=== PATIENT | female | born 1990 | race Caucasian/White ===

== ENCOUNTER 2020-03-08 12:45 | Emergency (ER) | payer BC, OTHER, SELFPAY ==
[2020-03-08 18:38] LABS: SARS-CoV-2 MS2 Positive; SARS-CoV-2 N Gene Negative; SARS-CoV-2 S Gene Negative; SARS-CoV-2 orf1ab Negative
== END 2020-03-08 13:26 | disposition home or self-care (01) ==
LOC: ERS 12:45
DX: O99.89 Other specified diseases and conditions complicating pregnancy, childbirth and the puerperium (principal); R05 Cough; Z20.828 Contact with and (suspected) exposure to other viral communicable diseases
CPT/HCPCS: 87635; 99283; U0003

== ENCOUNTER 2020-05-30 14:51 | Outpatient (CLI) | payer BC ==
--- NOTE | 2020-05-30 15:16 | ULT ---
EXAM: US Thyroid STANDARD PROVIDED CLINICAL HISTORY: Hypothyroidism. COMPARISON: None FINDINGS: The thyroid gland demonstrates a homogeneous echotexture bilaterally. No thyroid nodule is seen in ei ther lobe of the thyroid gland. Right lobe of thyroid gland measures 4.1 cm x 1.5 cm x 1.1 cm with the left lobe measuring 3.7 cm x 1 .2 cm x 0.9 cm. The thyroid isthmus measures 0.2 cm in AP dimensions. IMPRESSION: Normal appearance of the thyroid gland without visualization of a thyroid nodule.
== END 2020-05-30 14:52 | disposition home or self-care (01) ==
LOC: SCSULT 14:51
PROVIDERS: ATTEND Family Medicine
DX: E03.9 Hypothyroidism, unspecified (principal)
CPT/HCPCS: 76536

== ENCOUNTER 2020-08-03 09:02 | Outpatient (CLI) | payer BC, OTHER ==
[2020-08-03 18:15] LABS: SARS-CoV-2 MS2 Positive; SARS-CoV-2 N Gene Negative; SARS-CoV-2 S Gene Negative; SARS-CoV-2 by NAA Not Detected (NotDetected); SARS-CoV-2 orf1ab Negative
== END 2020-08-03 09:03 | disposition home or self-care (01) ==
LOC: LABBT 09:02
PROVIDERS: ATTEND Obstetrics & Gynecology
DX: Z20.828 Contact with and (suspected) exposure to other viral communicable diseases (principal)
CPT/HCPCS: 87635; U0003

== ENCOUNTER 2020-08-08 09:53 | Inpatient (IN) | payer BC, OTHER ==
[2020-08-08] MEDS: Lactated Ringer's 1,000 ML IV SCH ×2 (10:30→12:00)
[2020-08-08] MEDS ORDERED: hydrALAZINE 20 MG/ML VIAL SLOW IVP PRN ×2 (10:56→22:48)
[2020-08-08] MEDS ORDERED: Promethazine HCl 25 MG/ML VIAL IM PRN ×3 (10:56→22:51)
[2020-08-08] MEDS ORDERED: Ondansetron PF 4 MG/2 ML Vial IVP PRN ×3 (10:56→22:51)
--- NOTE | 2020-08-08 10:59 | PDOC.LDHP ---
Labor and Delivery H&P HPI: 30 y/o at 39 and 0/7 weeks, who presents for a third repeat today. Current gestational age (weeks): 39 Due date: 08/15/20 Grav: 5 Para: 2 Abnormal US findings: No Current medications: pre- vitamins Previous surgical history: low tranverse CS Social history: none - Physical Exam Vital signs reviewed and normal: yes General: NAD, resting, breathing through contractions Heart: RRR Lungs: CTAB Abdomen: gravid Extremeties: no edema FHT: category 1 - Assessment L&D Assessment: scheduled repeat section - Plan Plan: admit to L&D, to OR for section
[2020-08-08 11:00] VITALS: BMI 33.5
[2020-08-08] MEDS ORDERED: Bicitra 30 ML UDCUP PO SCH (11:00)
[2020-08-08] MEDS ORDERED: CEFAZOLIN 2 GM in Premix Bag 1 BAG IVPB SCH ×2 (11:00→11:15)
[2020-08-08] MEDS ORDERED: Bicitra 30 ML UDCUP ONE (11:05)
[2020-08-08 11:19] LABS: Hemoglobin 11.8 g/dL (12.0-16.0); Mean Corpuscular HGB CONC 31.8 g/dL (32.0-36.0); Mean Corpuscular Hemoglobin 28.6 pg (27.0-31.0); Mean Corpuscular Volume 89.8 fL (78.0-98.0); Mean Platelet Volume 9.6 fL (7.4-10.4); Platelet Count 174 thou/uL (130-400); RBC Distribution Width 13.4 % (11.5-14.5); Red Blood Cell (RBC) Count 4.11 mill/uL (4.20-5.40); White Blood Cell (WBC) Count 10.3 thou/uL (4.8-10.8)
[2020-08-08 11:52] LABS: Syphilis Antibody Nonreactive (Nonreactive); Syphilis Antibody Index 0.06 S/CO (<1.00 Non-Reactive)
[2020-08-08 11:54] LABS: HBSAg Index 0.14 S/CO (0-0.99); Hep B Surf Ag Non-Reactive S/CO (NonReactive)
[2020-08-08] MEDS: Scopolamine 1.5 mg/72 hour Patch TOP SCH (15:27)
[2020-08-08] MEDS ORDERED: Morphine PF 10 MG/10 ML VIAL ONE (19:13)
[2020-08-08] MEDS ORDERED: Fentanyl 100 MCG/2 ML VIAL ONE (19:13)
[2020-08-08] MEDS ORDERED: Dexamethasone 4 mg/ml Vial ONE (19:14)
[2020-08-08] MEDS ORDERED: Oxytocin 10 UNITS/ML VIAL ONE (19:14)
[2020-08-08] MEDS ORDERED: PHENYLEPHRINE-NS 100 MCG/ML 10 ML SYRINGE ONE (19:14)
[2020-08-08] MEDS ORDERED: Ketorolac Tromethamine 30 MG/ML VIAL ONE (19:14)
[2020-08-08] MEDS ORDERED: ePHEDrine 50 MG/ML VIAL ONE (19:14)
[2020-08-08] MEDS ORDERED: Ondansetron PF 4 MG/2 ML Vial ONE (19:14)
[2020-08-08] MEDS ORDERED: diphenhydrAMINE 25 MG CAP PO PRN (22:48)
[2020-08-08] MEDS ORDERED: Lanolin Ointment 7 GM TUBE TOP PRN (22:48)
[2020-08-08] MEDS ORDERED: HYDROmorphone 2 MG/ML VIAL SLOW IVP PRN (22:51)
[2020-08-08] MEDS ORDERED: Promethazine HCl 25 MG SUPP PR PRN (22:51)
[2020-08-08] MEDS ORDERED: Naloxone HCl 0.4 mg/ml Vial IV PRN (22:51)
[2020-08-08] MEDS ORDERED: L&D-Morphine 4 MG/ML VIAL SLOW IVP PRN (22:51)
[2020-08-08] MEDS ORDERED: Ondansetron HCl/PF 4 MG/2 ML Vial IVP PRN (22:51)
[2020-08-08] MEDS ORDERED: diphenhydrAMINE 50 MG/ML VIAL IVP PRN (22:51)
[2020-08-08] MEDS ORDERED: Naloxone HCl 0.4 mg/ml Vial IVP PRN ×2 (22:51)
[2020-08-08] MEDS ORDERED: Meperidine HCl/PF 25 MG/ML VIAL SLOW IVP PRN (22:51)
[2020-08-08] MEDS ORDERED: Communication Order-Pharmacy FS SCH (23:00)
[2020-08-08] MEDS ORDERED: Ketorolac Tromethamine 30 MG/ML VIAL IVP SCH (23:00)
[2020-08-09] MEDS: Simethicone Chewable 80 MG TAB PO PRN ×4 (03:43→21:31)
[2020-08-09] MEDS: Ketorolac Tromethamine 30 MG/ML VIAL IVP PRN ×3 (05:10→20:02)
[2020-08-09 06:53] LABS: Hemoglobin 11.4 g/dL (12.0-16.0); Mean Corpuscular HGB CONC 33.3 g/dL (32.0-36.0); Mean Corpuscular Hemoglobin 30.3 pg (27.0-31.0); Mean Corpuscular Volume 91.2 fL (78.0-98.0); Mean Platelet Volume 8.8 fL (7.4-10.4); Platelet Count 158 thou/uL (130-400); RBC Distribution Width 13.3 % (11.5-14.5); Red Blood Cell (RBC) Count 3.75 mill/uL (4.20-5.40); White Blood Cell (WBC) Count 15.4 thou/uL (4.8-10.8)
[2020-08-09] MEDS: Prenatal Vitamin 1 TAB PO SCH (08:22)
[2020-08-09] MEDS ORDERED: Adacel (T-DAP) 0.5 ML SYRINGE IM ONE (09:00)
[2020-08-09] MEDS ORDERED: Varicella virus, LIVE 0.5 ML VIAL SC ONE (09:00)
[2020-08-09] MEDS ORDERED: Measles/Mumps/Rubella 10 MCG/0.5 ML VIAL SC ONE (09:00)
[2020-08-09] MEDS ORDERED: Sodium Chloride 0.9% 10 ML ONE (13:09)
[2020-08-09] MEDS: HYDROcodone/Acetaminophen 5/325 mg Tablet PO PRN ×2 (16:45→21:31)
--- NOTE | 2020-08-09 19:58 | PDOC.PP ---
Post Progress Note Post Day #: 1 PO intake tolerated: yes Flatus: yes Ambulation: yes Vital Signs (12 hours) Temp Pulse Resp BP Pulse Ox 08/09/20 16:05 98.5 F 89 20 114/75 99 08/09/20 13:00 98.2 F 77 18 121/72 08/09/20 08:22 98 08/09/20 08:02 98.1 F 76 16 130/80 98 Weight Weight 214 lb - Physical Examination General: NAD Cardiovascular: no m/r/g, RRR Respiratory: clear to auscultation bilaterally, non-labored breathing Abdominal: + bowel sounds, lochia, no distention, appropriately TTP Extremities: negative homans (B) Skin: CS incision dry & intact, no rash Neurological: no gross focal deficits Psychiatric: A&Ox3, normal affect Result Diagrams: 08/09/20 06:36 Additional Labs: Post Labs Hep Bs Antigen Non-Reactive S/CO (NonReactive) 08/08/20 11:02 Blood Type A POSITIVE 08/08/20 11:17
[2020-08-10] MEDS: HYDROcodone/Acetaminophen 5/325 mg Tablet PO PRN ×3 (02:23→21:02)
[2020-08-10] MEDS: Ibuprofen 800 MG TAB PO SCH ×3 (02:24→15:39)
[2020-08-10] MEDS: Simethicone Chewable 80 MG TAB PO PRN ×4 (02:26→15:38)
[2020-08-10] MEDS: Prenatal Vitamin 1 TAB PO SCH (09:28)
--- NOTE | 2020-08-10 17:24 | PDOC.PP ---
Post Progress Note Post Day #: 2 PO intake tolerated: yes Flatus: yes Ambulation: yes Vital Signs (12 hours) Temp Pulse Resp BP Pulse Ox 08/10/20 08:10 97.9 F 96 20 130/84 98 08/10/20 05:58 97.9 F 77 16 124/77 Weight Weight 214 lb - Physical Examination General: NAD Cardiovascular: no m/r/g, RRR Respiratory: clear to auscultation bilaterally, non-labored breathing Abdominal: + bowel sounds, lochia, no distention, appropriately TTP Extremities: negative homans (B) Skin: CS incision dry & intact, no rash Neurological: no gross focal deficits Psychiatric: A&Ox3, normal affect Result Diagrams: 08/09/20 06:36 Additional Labs: Post Labs Hep Bs Antigen Non-Reactive S/CO (NonReactive) 08/08/20 11:02 Blood Type A POSITIVE 08/08/20 11:17
--- NOTE | 2020-08-10 23:44 | OP ---
DATE OF PROCEDURE: 08/08/2020 TIME OF SERVICE: At 2151 hours central daylight savings time. PREOPERATIVE DIAGNOSIS: Intrauterine at 39 weeks with a scheduled repeat third section. POSTOPERATIVE DIAGNOSIS: Intrauterine at 39 weeks with a scheduled repeat third section. PROCEDURE PERFORMED: Repeat low transverse section. FINDINGS: Viable male infant, weighing 4619 g or 10 pounds 3 ounces with Apgars 9 and 9. QUANTITATIVE BLOOD LOSS: 637 mL. COMPLICATIONS: None. DETAILS OF THE PROCEDURE: The patient was consented and taken back to the operating room where spinal anesthesia was found to be adequate. She was then prepped and draped in the normal sterile fashion. A timeout was performed by the entire operative team. The incision was then marked with a marking pen tested using sharp pickups. An incision was then made with a scalpel. The incision was carried through the adipose tissue down to the underlying rectus fascia using both sharp dissection as well as cautery. Once the fascia was identified, it was incised in the midline and then the fascial incision was carried through in both lateral directions using sharp as well as cautery dissection techniques. Next, the superior aspect of the rectus fascia was grasped with 2 Bree clamps, which was tented up and the rectus muscles were dissected off using blunt dissection as well as cautery dissection. Similarly, the inferior aspect of the fascial incision was grasped with 2 Bree clamps, tented up and the rectus muscles were dissected off bluntly as well as sharply. Next, the rectus muscles were in the midline and the peritoneum identified. The peritoneum was then carefully grasped with 2 hemostats and entered sharply. The peritoneal incision was extended superiorly and inferiorly and bladder blade was placed in the lower abdomen. At this point, the uterus was identified and the bladder flap was then developed using pickups with teeth as well as Metzenbaum scissors in both lateral directions. The bladder flap was then dissected downwards using the head sulfide operator's finger as well as Metzenbaum scissors. The bladder blade was replaced. The lower uterine segment was then identified and entered sharply using a clean scalpel. The uterine incision was then dissected downwards until thin layer of muscle remained and this was entered bluntly using a hemostat to avoid any injury to the baby. The uterine incision was then stretched using two fingers in both lateral directions. An amniotomy was performed artificially using a hemostat and the baby was delivered using fundal pressure in a gentle fashion. Once out, the baby's mouth and nose were bulb suctioned, cord clamped and cut, and the baby was handed to waiting attendants. Next, the uterus was exteriorized, cleared of all clots and debris and the uterine incision was repaired with #1 Monocryl in a running locking fashion. A 2nd suture of the same type was used to obtain complete hemostasis at the uterine incision. The bladder flap was reapproximated using 3-0 Monocryl. Next, patient's left and right adnexa were inspected and appeared to be within normal limits. The posterior cul-de-sac was blotted dry and hemostasis assured. One more look at the uterine incision demonstrated hemostasis. Next, the uterus was replaced back within the abdomen. The peritoneum was reapproximated using 2-0 Monocryl without difficulty. The rectus muscles were then allowed to come back together and 0 chromic was used to aid in reapproximation of the muscle as necessary. The rectus fascia was then reapproximated in a running fashion using 0 Vicryl suture. The adipose tissue was then examined and appeared to be well approximated without any obvious separations. Finally, the skin was reapproximated with 3-0 Monocryl on a Kleber needle without difficulty and Dermabond adhesive was applied to the skin. Once the glue was dry, the drapes were removed and the patient was transferred to an ambulatory bed where she was taken to recovery awake and in stable condition. Sponge, lap, and needle counts were correct x3. Job ID: [id number]
[2020-08-11] MEDS: Ibuprofen 800 MG TAB PO SCH ×2 (03:16→13:22)
[2020-08-11] MEDS ORDERED: Sodium Chloride 0.9% 10 ML ONE (06:05)
[2020-08-11 09:46] VITALS: BP 127/81; TEMP 98.4
[2020-08-11] MEDS: Prenatal Vitamin 1 TAB PO SCH (09:49)
[2020-08-11] MEDS: HYDROcodone/Acetaminophen 5/325 mg Tablet PO PRN (09:50)
[2020-08-11] MEDS: Scopolamine 1.5 mg/72 hour Patch TOP SCH (13:11)
== END 2020-08-11 13:27 | disposition home or self-care (01) | DRG 788 ==
LOC: L&D 09:53 → 3SW 08-09 01:14
PROVIDERS: ADMIT Obstetrics & Gynecology; ATTEND Obstetrics & Gynecology
PROC: 10D00Z1 Extraction of Products of Conception, Low, Open Approach (ICD-10-PCS; principal; 2020-08-08)
DX: O34.211 Maternal care for low transverse scar from previous cesarean delivery (principal); Z3A.39 39 weeks gestation of pregnancy; Z37.0 Single live birth; Z20.828 Contact with and (suspected) exposure to other viral communicable diseases
CPT/HCPCS: 36415; 51702; 85027; 86780; 86850; 86870; 86900; 86901; 86904; 86905; 86922; 87340; J0690; J1100; J1885; J2270; J2405; J3010; J3490; Q0163

== ENCOUNTER 2022-07-15 11:23 | Outpatient (CLI) | payer BC | END 2022-07-15 11:24 | disposition home or self-care (01) | LOC: SCSRAD 11:23 | PROVIDERS: ATTEND Internal Medicine Rheumatology | DX: M25.541 Pain in joints of right hand (principal); M25.542 Pain in joints of left hand; M54.50 Low back pain, unspecified; M47.816 Spondylosis without myelopathy or radiculopathy, lumbar region | CPT/HCPCS: 72110 ==